=== PATIENT | male | born 1975 | race Caucasian/White ===

== ENCOUNTER 2017-07-31 07:20 | Emergency (ER) | payer SELFPAY ==
--- NOTE | 2017-07-31 08:04 | ER Document Report ---
ED General - General Chief Complaint: Vomiting/Diarrhea Stated Complaint: VOMITING Time Seen by Provider: 07/31/17 08:03 Mode of Arrival: Ambulatory Information source: Patient TRAVEL OUTSIDE OF THE [place] IN LAST 30 DAYS: No - HPI Notes: 42-year-old male presents today with complaints of abdominal pain, nausea, vomiting, diarrhea for the last 3 days. Dates he woke up with symptoms 3 days ago. Has been trying [id number] antidiarrheals without relief. Reports even iceberg salad from all guarding on Thursday evening, states his symptoms started Thursday morning. Denies any coffee-ground emesis or black tarry stool. Denies any fevers or chills. Worse with time, nothing makes better. Patient has vomited several times today, states he is having loose stool. Denies any new medications or travel outside of the country. Denies fevers, chills, chest pain,palpitations, shortness of breath, dyspnea, hematuria,blurred vision , double vision, loss of vision, speech changes, LH, dizziness, syncope, headaches, wheezing, ST, URI, neck pain, weakness, bowel or bladder dysfunction , saddle anesthesia, numbness or tingling in bilateral upper or lower extremities equally, muscle paralysis, weakness in bilateral upper or lower extremities equally or rash. Denies IV drug use. - Related Data Allergies/Adverse Reactions: No Known Allergies Allergy (Verified 07/31/17 10:37) Past Medical History - General Information source: Patient - Social History Smoking Status: Unknown if Ever Smoked Family History: Reviewed & Not Pertinent Review of Systems - Review of Systems Constitutional: See HPI EENT: No symptoms reported Cardiovascular: No symptoms reported Respiratory: No symptoms reported Gastrointestinal: See HPI Genitourinary: No symptoms reported Male Genitourinary: No symptoms reported Musculoskeletal: No symptoms reported Skin: No symptoms reported Hematologic/Lymphatic: No symptoms reported Neurological/Psychological: No symptoms reported Physical Exam - Vital signs Vitals: Temp Pulse BP Pulse Ox 98.1 F 73 133/79 H 97 07/31/17 07:29 07/31/17 07:29 07/31/17 07:29 07/31/17 07:29 - Notes Notes: PHYSICAL EXAMINATION: GENERAL: Well-appearing, well-nourished and in no moderate distress. HEAD: Atraumatic, normocephalic. EYES: Pupils equal round and reactive to light, extraocular movements intact, sclera anicteric, conjunctiva are normal. ENT: Nares patent, oropharynx clear without exudates. Moist mucous membranes. NECK: Normal range of motion, supple without lymphadenopathy LUNGS: Breath sounds clear to auscultation bilaterally and equal. No wheezes rales or rhonchi. HEART: Regular rate and rhythm without murmurs ABDOMEN: Soft, nondistended abdomen. Generalized abdominal pain, with guarding. no rebound. No masses appreciated. No CVA tenderness bilaterally Musculoskeletal: Normal range of motion, no pitting or edema. No cyanosis. NEUROLOGICAL: Cranial nerves grossly intact. Normal speech, normal gait. Normal sensory, motor exams PSYCH: Normal mood, normal affect. SKIN: Warm, Dry, normal turgor, no rashes or lesions noted. Course - Re-evaluation Re-evalutation: 07/31/17 13:58 42-year-old male here for evaluation of nausea vomiting diarrhea and abdominal pain for 3 days. Patient is afebrile, vitals stable. CBC shows slight leukocytosis of 12.1, no anemia, H&H are slightly elevated this is likely due to dehydration. CMP shows no renal or hepatic dysfunction, electrolytes stable. Urinalysis shows ketones with with hematuria. Patient given 8 mg of IV Zofran with IV fluids along with Toradol this seemed to help with patient's pain. On reevaluation 2 hours later, patient states he still vomiting, patient given Compazine maintenance IV fluids. Patient states is unable to have a bowel movement. Ct abdomen pelvis was negative for any nephrolithiasis, cholecystitis, appendectomy, free fluid, diverticulitis or any other intra- abdominal pathology. reevaluation, patient states he is feeling much better, vomiting has ceased. Abdominal pain has resolved. Discussed with patient that his urinalysis does show hematuria and he does need to follow-up with his primary care doctor for this. Discussed with him will prescribe him antiemetics for home, to increase oral hydration by drinking Pedialyte and following a bland diet. If symptoms become worse to return to the emergency room. At this time will discharge with return precautions and follow-up recommendations. Verbal discharge instructions given a the bedside and opportunity for questions given. Medication warnings reviewed. Patient is in agreement with this plan and has verbalized understanding of return precautions and the need for primary care follow-up in the next 24-72 hours. After performing a Medical Screening Examination, I estimate there is LOW risk for ACUTE APPENDICITIS, BOWEL OBSTRUCTION, ACUTE CHOLECYSTITIS, PERFORATED DIVERTICULITIS, INCARCERATED HERNIA, PANCREATITIS, TESTICULAR TORSION or PERFORATED ULCER, thus I consider the discharge disposition reasonable. Also, there is no evidence or peritonitis, sepsis, or toxicity. I have reevaluated this patient multiple times and no significant life threatening changes are noted. The patient and I have discussed the diagnosis and risks, and we agree with discharging home with close follow-up with the understanding that symptoms and presentations can change. We also discussed returning to the Emergency Department immediately if new or worsening symptoms occur. We have discussed the symptoms which are most concerning (e.g., bloody stool, fever, changing or worsening pain, intractable vomiting - standard verbal up date) that necessitate immediate return. 07/31/17 14:03 - Vital Signs Vital signs: Temp Pulse Resp BP Pulse Ox 98.6 F 69 12 121/63 95 07/31/17 12:42 07/31/17 12:42 07/31/17 11:24 07/31/17 12:42 07/31/17 12:42 - Laboratory Result Diagrams: 07/31/17 08:20 07/31/17 08:20 Laboratory results interpreted by me: 07/31/17 07/31/17 07/31/17 08:20 08:20 10:13 WBC 12.1 H RBC 5.94 H Hgb 18.2 H Hct 53.3 H Seg Neutrophils % 85.8 H Lymphocytes % 8.4 L Absolute Neutrophils 10.3 H Chloride 96 L BUN 23 H Glucose 142 H Calcium 10.6 H Total Protein 8.9 H Albumin 5.5 H Urine Ketones 20 H Urine Blood SMALL H Discharge - Discharge Clinical Impression: Gastroenteritis Condition: Good Disposition: HOME, SELF-CARE Instructions: Prescribed Antidiarrhea Medications ([facility]), Gastroenteritis (adult ) ([facility]), Antinausea Medication ([facility]), Intravenous (IV) Fluids ([facility]), Clear Liquid Diet ([facility]), Vomiting ([facility]) Additional Instructions: Your symptoms appear to be most consistent with stomach or upper intestinal irritation. Please begin taking famotidine 40 mg in the morning and 40 mg at night. This medicine can be purchased directly [id number]. You may also take medicine such as Pepto-Bismol or Tums to assist with your pain. Please return to emergency department immediately if you have worsening of your pain, shortness of breath, vomiting, become unable to exert yourself due to pain or difficulty breathing, you pass out, or have any pain that radiates into your arms, jaw, or back. Please also return if you have any additional symptoms that are concerning to you. As we have discussed, the most important thing is lifestyle changes. You need to avoid smoking, sodas, tea, coffee, alcohol, spicy foods, and acidic foods such as citrus fruits, tomato based products, berries, and most fruit juice Return immediately for any new or worsening symptoms. Follow up with primary care provider, call tomorrow to make followup appointment. Prescriptions: Ondansetron [Zofran Odt 4 mg Tablet] 1 - 2 tab PO Q4H PRN #15 tab.rapdis PRN Reason: For Nausea/Vomiting Referrals: JOB MOSLEY MD [ACTIVE STAFF] - Follow up in 3-5 days
[2017-07-31] MEDS ORDERED: NORMAL SALINE 1000 ML 1,000 ML IV ONE ×2 (08:05→10:16)
[2017-07-31] MEDS ORDERED: ONDANSETRON HCL INJ/PF 4 MG/2 ML SDV IV ONE (08:05)
[2017-07-31] MEDS ORDERED: KETOROLAC TROMETHAMINE INJ/PF 30 MG/1 ML SDV IV ONE (08:20)
[2017-07-31 08:37] LABS: ABSOLUTE BASOPHILS # (AUTO) 0.1 10^3/uL (0.0-0.2); ABSOLUTE MONOCYTES (AUTO) 0.6 10^3/uL (0.1-1.4); ABSOLUTE NEUT (AUTO) 10.3 10^3/uL (1.7-8.2); BASOPHILS % (AUTO) 0.5 % (0-2); HEMATOCRIT 53.3 % (37.9-51.0); HEMOGLOBIN 18.2 g/dL (13.5-17.0); LYMPHOCYTES % (AUTO) 8.4 % (13-45); MEAN CORPUSCULAR HEMOGLOBIN 30.6 pg (27.0-33.4); MEAN CORPUSCULAR HGB CONC 34.1 g/dL (32.0-36.0); MEAN CORPUSCULAR VOLUME 90 fl (80-97); MONOCYTES % (AUTO) 5.3 % (3-13); PLATELET COUNT 316 10^3/uL (150-450); RED BLOOD COUNT 5.94 10^6/uL (4.35-5.55); RED CELL DISTRIBUTION WIDTH 13.4 % (11.5-14.0); SEGMENTED NEUTROPHILS % (AUTO) 85.8 % (42-78); TOTAL CELLS COUNTED % (AUTO) 100 %; WHITE BLOOD COUNT 12.1 10^3/uL (4.0-10.5)
[2017-07-31 08:44] LABS: ALANINE AMINOTRANSFERASE 44 U/L (21-72); ALBUMIN 5.5 g/dL (3.5-5.0); ALKALINE PHOSPHATASE 74 U/L (38-126); ANION GAP 18 (5-19); ASPARTATE AMINO TRANSFERASE 28 U/L (17-59); BILIRUBIN,DIRECT 0.3 mg/dL (0.0-0.4); BLOOD UREA NITROGEN 23 mg/dL (7-20); CALCIUM 10.6 mg/dL (8.4-10.2); CARBON DIOXIDE 30 mmol/L (22-30); CHLORIDE 96 mmol/L (98-107); GLUCOSE 142 mg/dL (75-110); LIPASE 93.8 U/L (23-300); POTASSIUM 3.9 mmol/L (3.6-5.0); SODIUM 144.3 mmol/L (137-145); TOTAL PROTEIN 8.9 g/dL (6.3-8.2)
[2017-07-31] MEDS ORDERED: PROCHLORPERAZINE EDISYLATE INJ 10 MG/2 ML VIAL IV ONE (10:16)
[2017-07-31] MEDS ORDERED: NORMAL SALINE 1000 ML 1,000 ML IV PRN (10:20)
[2017-07-31 10:30] LABS: APPEARANCE,URINE CLEAR; BILIRUBIN,URINE NEGATIVE (NEGATIVE); COLOR,URINE YELLOW; GLUCOSE, URINE NEGATIVE (NEGATIVE); KETONES,URINE 20 mg/dL (NEGATIVE); LEUKOCYTE ESTERASE,URINE NEGATIVE (NEGATIVE); NITRITE,URINE NEGATIVE (NEGATIVE); PROTEIN,URINE NEGATIVE (NEGATIVE); URINE SPECIFIC GRAVITY 1.013; UROBILINOGEN,URINE NEGATIVE mg/dL (<2.0)
--- NOTE | 2017-07-31 11:21 | RADIOLOGY REPORT (SQ) ---
EXAM DESCRIPTION: CT ABD/PELVIS WITH IV ONLY COMPLETED DATE/TIME: 07/31/2017 11:04 am REASON FOR STUDY: severe abd pain with n/v x 3 days COMPARISON: None. TECHNIQUE: CT scan of the abdomen and pelvis performed using helical scanning technique with dynamic intravenous contrast injection. No oral contrast. Images reviewed with lung, soft tissue, and bone windows. Reconstructed coronal and sagittal MPR images reviewed. Delayed images for evaluation of the urinary system also acquired. All images stored on PACS. All CT scanners at this facility use dose modulation, iterative reconstruction, and/or weight based d osing when appropriate to reduce radiation dose to as low as reasonably achievable (ALARA). [facility]: Dose Right [facility]: CareDose [facility]: Dose Right [facility]: Teradose 4D [facility]: [employer] CONTRAST TYPE AND DOSE: contrast/concentration: Isovue 370.00 mg/ml; Total Contrast Delivered: 93.0 ml; Total Saline Delivered: 71.0 ml 93 mL Isovue 370 intravenously RENAL FUNCTION: Creatinine 0.95. RADIATION DOSE: CT Rad equipment meets quality standard of care and radiation dose reduction techniq ues were employed. CTDIvol: 8.4 - 12.6 mGy. DLP: 1064 mGy-cm.. LIMITATIONS: None. FINDINGS: LOWER CHEST: No significant findings. No nodules or infiltrates. LIVER: Likely tiny cyst of the right lobe. No suspicious lesions. SPLEEN: Normal size. No focal lesions. PANCREAS: No masses. No significant calcifications. No adjacent inflammation or peripancreatic fluid collections. Pancreatic duct not dilated. GALLBLADDER: No identified stones by CT criteria. No inflammatory changes to suggest cholecystitis. ADRENAL GLANDS: No significant masses or asymmetry. RIGHT KIDNEY AND URETER: No solid masses. No significant calcifications. No hydronephrosis or hyd roureter. LEFT KIDNEY AND URETER: No solid masses. No significant calcifications. No hydronephrosis or hydr oureter. AORTA AND VESSELS: No AAA. RETROPERITONEUM: No retroperitoneal adenopathy, hemorrhage or masses. BOWEL AND PERITONEAL CAVITY: No masses or inflammatory changes. No free fluid or peritoneal masses. APPENDIX: Normal. PELVIS: No mass. No free fluid. Normal bladder. ABDOMINAL WALL: No masses. No hernias. BONES: No significant or acute findings. OTHER: No other significant finding. IMPRESSION: Nothing acute. Nonobstructive bowel pattern. TECHNICAL DOCUMENTATION: JOB ID: [id number] Quality ID # [id number]: Final reports with documentation of one or more dose reduction techniques (e.g., Au tomated exposure control, adjustment of the mA and/or kV according to patient size, use of iterative reconstruction technique) 2010 [employer]- All Rights Reserved Reading location - IP/workstation name: [email or web address]
[2017-07-31 14:03] VITALS: BP 122/74
== END 2017-07-31 14:07 | disposition home or self-care (01) ==
LOC: ER 07:20
DX: K52.9 Noninfective gastroenteritis and colitis, unspecified (principal); R10.9 Unspecified abdominal pain
CPT/HCPCS: 99284; 96361; 96374; 96375; 36415; 83690; 85025; 80053; 81001; 74177; J1885; J0780; J2405; J7030

== ENCOUNTER 2017-08-06 19:20 | Emergency (ER) | payer SELFPAY ==
[2017-08-06 19:29] VITALS: BP 111/79
[2017-08-06] MEDS ORDERED: METHYLPREDNISOLONE INJ 125 MG/2 ML SDV IM ONE (19:57)
--- NOTE | 2017-08-06 20:00 | ER Document Report ---
HPI - HPI Pain Level: Denies Notes: Patient is a 42-year-old male presents to the ED complaining of generalized rash , primarily to his lower extremities 1-2 days. 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 Patient states that he has had poison angela roughly 10 times per year since he started this career. Patient states that usually gets a shot of steroid and sent home on a steroid pack which appears his symptoms. Patient states that the rash did blister up, but he has been scratching at them constantly. Denies any drug allergies. No other concerns or complaints at this time. Denies any headache, fever, neck pain, URI, sore throat, chest pain , palpitations, syncope, cough, shortness of breath, wheeze, dyspnea, abdominal pain, nausea/vomiting/diarrhea, urinary retention, dysuria, hematuria. - ROS Systems Reviewed and Negative: Yes All other systems reviewed and negative Past Medical History - Social History Smoking Status: Current Every Day Smoker Family History: Reviewed & Not Pertinent Renal/ Medical History: Denies: Hx Peritoneal Dialysis Vertical Provider Document - CONSTITUTIONAL Agree With Documented VS: Yes Notes: PHYSICAL EXAMINATION: GENERAL: Well-appearing, well-nourished and in no acute distress. LUNGS: Breath sounds clear to auscultation bilaterally and equal. No wheezes rales or rhonchi. HEART: Regular rate and rhythm without murmurs, rubs, gallops. Musculoskeletal: FROM to passive/active. Strength 5+/5. Extremities: No cyanosis, clubbing, or edema b/l. Peripheral pulses 2+. Capillary refill less than 3 seconds. NEUROLOGICAL: Cranial nerves grossly intact. Normal speech, normal gait. Normal sensory, motor exams PSYCH: Normal mood, normal affect. SKIN: erythemic vesicular and maculopapular lesions to his LE's b/l and a few spots on his UE's b/l. No abscess, streaks, or purulence. - INFECTION CONTROL TRAVEL OUTSIDE OF THE [place] IN LAST 30 DAYS: No Course - Re-evaluation Re-evalutation: 08/06/17 20:42 Patient is an afebrile, well-hydrated, 42-year-old male who presents to the ED with contact dermatitis, suspect secondary to poison angela. Vitals are acceptable. PE is otherwise unremarkable. No labs or imaging warranted at this time based on H&P. Solu-Medrol 125 mg given IM today. I will be sending him home with a prescription for a steroid taper pack. Conservative measures otherwise for symptoms. Recheck with your PCM in 3-5 days. Consider consult dermatology. Return to the ED with any worsening/concerning symptoms otherwise as reviewed discharge. Patient is in agreement. - Vital Signs Vital signs: Temp Pulse Resp BP Pulse Ox 98.0 F 82 16 111/79 94 08/06/17 19:28 08/06/17 19:28 08/06/17 19:28 08/06/17 19:28 08/06/17 19:28 Discharge - Discharge Clinical Impression: Dermatitis due to plant Condition: Stable Disposition: HOME, SELF-CARE Instructions: Poison Angela ([facility]) Additional Instructions: Keep the skin clean Wash with soap and water Tylenol/ibuprofen if needed Triple antibiotic ointment daily on open wounds Take medication as directed Monitor for any worsening symptoms Recheck with your PCM in 3-5 days Consider consult with Dermatology for ongoing/worsening symptoms Return to the ED with any worsening symptoms and/or development of fever, headache, chest pain, palpitations, syncope, shortness of breath, trouble breathing, abdominal pain, n/v/d, abscess, purulent discharge, red streaks, worsening swelling, or other worsening symptoms that are concerning to you. Prescriptions: Prednisone [Deltasone 10 mg Tablet] 1 tab PO ASDIR PRN #18 tablet PRN Reason: Referrals: CHRISTINE DIGGS DO [ACTIVE STAFF] - Follow up as needed
== END 2017-08-06 20:08 | disposition home or self-care (01) ==
LOC: ER 19:20
DX: L25.5 Unspecified contact dermatitis due to plants, except food (principal); F17.200 Nicotine dependence, unspecified, uncomplicated
CPT/HCPCS: 99282; 96372; J2930